=== PATIENT | female | born 1975 | race African-American/Black ===

== ENCOUNTER 2021-03-16 13:38 | Emergency (ER) | payer SELFPAY ==
--- NOTE | 2021-03-16 15:09 | Emergency Department Report ---
- General Chief complaint: Skin/Abscess/Foreign Body Stated complaint: BOIL Source: patient Mode of arrival: Ambulatory Limitations: No Limitations - History of Present Illness Initial comments: 45-year-old female comes in concern for skin swelling on her left clavicle that she noticed this morning. Patient states it really does not hurt. She reports she had a Covid vaccine on 03/12/2021 and not sure of its a reaction. Patient denies any nausea vomiting no fever no chills no shortness of breath no chest pain no diarrhea no abdominal pain. Patient denies any past medical history. She is followed by Dr. Marr's office. Tetanus Up to Date: yes Location: chest (Left clavicle) Severity: mild Severity scale (0 -10): 0 Improves with: none Worsens with: none Associated symptoms: denies other symptoms Treatments Prior to Arrival: none - Related Data Allergies Allergy/AdvReac Type Severity Reaction Status Date / Time No Known Allergies Allergy Unverified 03/16/21 14:38 Abscess Boil HPI - HPI Chief Complaint: Skin/Abscess/Foreign Body Stated Complaint: BOIL Allergies/Adverse Reactions: Allergies Allergy/AdvReac Type Severity Reaction Status Date / Time No Known Allergies Allergy Unverified 03/16/21 14:38 ED Review of Systems ROS: Stated complaint: BOIL Other details as noted in HPI Comment: All other systems reviewed and negative ED Past Medical Hx - Past Medical History Previous Medical History?: No - Surgical History Past Surgical History?: No ED Physical Exam - General Limitations: No Limitations General appearance: alert, in no apparent distress - Head Head exam: Present: atraumatic, normocephalic - Eye Eye exam: Present: normal appearance - ENT ENT exam: Present: mucous membranes moist - Neck Neck exam: Present: normal inspection, lymphadenopathy (Left clavicular mobile soft) - Respiratory Respiratory exam: Present: normal lung sounds bilaterally. Absent: respiratory distress - Cardiovascular Cardiovascular Exam: Present: regular rate, normal rhythm. Absent: systolic murmur, diastolic murmur, rubs, gallop - GI/Abdominal GI/Abdominal exam: Present: soft, normal bowel sounds - Extremities Exam Extremities exam: Present: normal inspection - Back Exam Back exam: Present: normal inspection - Neurological Exam Neurological exam: Present: alert, oriented X3 - Psychiatric Psychiatric exam: Present: normal affect, normal mood - Skin Skin exam: Present: warm, dry, intact, normal color. Absent: rash ED Course Vital Signs 03/16/21 14:35 Temperature 97.7 F Pulse Rate 77 Respiratory 16 Rate Blood Pressure 120/47 [Right] O2 Sat by Pulse 99 Oximetry ED Medical Decision Making - Medical Decision Making 45-year-old female comes in concern for skin swelling on her left clavicle that she noticed this morning. Patient states it really does not hurt. She reports she had a Covid vaccine on 03/12/2021 and not sure of its a reaction. Patient denies any nausea vomiting no fever no chills no shortness of breath no chest pain no diarrhea no abdominal pain. Patient denies any past medical history. She is followed by Dr. Marr's office. Most likely lymphadenopathy secondary to Covid vaccine. No pain vitals are s table patient is nontoxic in appearance. Recommend Tylenol ibuprofen and to follow-up with her primary care provider. Critical care attestation.: If time is entered above; I have spent that time in minutes in the direct care of this critically ill patient, excluding procedure time. ED Disposition Clinical Impression: Lymphadenopathy of left cervical region Disposition: DC-01 TO HOME OR SELFCARE Is pt being admited?: No Does the pt Need Aspirin: No Condition: Stable Instructions: Lymphadenopathy Additional Instructions: Tylenol or ibuprofen. Most likely this is a reaction from the vaccine as your lymph nodes is mildly swollen. Keep your appointment to follow-up with your primary care provider. Tylenol o ibuprofeno. Lo ms probable es que se trata de rey reaccin de la vacuna, ya que los ganglios linfticos estn ligeramente hinchados. Mant[place]a [place] esa para hacer un seguimiento con [place] proveedor de atencin primaria. Referrals: PRIMARY CARE, [Primary Care Provider] - 3-5 Days KEVAN MARR MD [Staff Physician] - 3-5 Days Print Language: BHUTANESE
== END 2021-03-16 15:15 | disposition home or self-care (01) ==
LOC: ED 13:38
DX: R59.0 Localized enlarged lymph nodes (principal)
CPT/HCPCS: 99281